=== PATIENT | female | born 1940 | race Caucasian/White ===

== ENCOUNTER 2016-05-24 09:06 | Inpatient (IN) | payer MEDICARE ==
[~2016-05-24] VITALS: Ht 162.6 cm; Wt 79.7 kg
[2016-05-24] VITALS (11 sets, daily range): BP systolic 130–183; BP diastolic 56–85; PULSE 77–92; RESP 14–21; O2SAT 91–96
--- NOTE | 2016-05-24 07:11 | PCM.HPANE ---
Patient Data Surgeon Admitting Provider: Attending Provider:Julio Linton MD Primary Care Physician:Rossi Gates MD Other Provider:Renetta Lopezingham Anesthesia Reason for Visit Right Knee Arthritis Ht/WT & BMI Height (Feet): 5 Height (Inches): 4 Weight (Kilograms): 79.74 Body Mass Index 30.00 Allergies Coded Allergies: codeine (Verified Allergy, Unknown, itch, 05/20/16) Uncoded Allergies: THIMEROSOL (Allergy, Unknown, 05/20/16) Past Anesthesia History Anesthesia History: Positive for:: Anesthesia Reactions (difficulty waking up after rotator cuff/record requested could not be found), Denies:: Abnormal Airway, Difficult Intubation, Fam Anesthesia Reaction Diabetes History Hx Diabetes?: No MRSA MRSA: No Medications Hypertension Medication: Yes Home Meds Incl Beta Jered: No Reported Medications Cholecalciferol (Vitamin D3) (Vitamin D3)5,000 Unit Capsule5,000 Unit PO DAILY 05/20/16 Estradiol (Vagifem)10 Mcg Wqmudm03 Mcg VG 2xweekly 05/20/16 Acetaminophen (Tylenol Arthritis)650 Mg Tablet.er650 Mg PO PRN For Pain 05/20/16 Nicotine Polacrilex (Nicorette)2 Mg Lozenge2 Mg BC PRN PRN For Tobacco Withdrawal Ref 0 05/20/16 Multivitamin (Multi Vitamin Daily)1 Each Tablet1 Each PO DAILY 30 Days Ref 0 05/20/16 Meloxicam 7.5 Mg/5 Ml Oral.susp7.5 Mg PO DAILY 30 Days Ref 0 05/20/16 Hydrochlorothiazide 25 Mg Djufcb15 Mg PO DAILY 30 Days Ref 0 05/20/16 Glucosamine 500 Mg Oibgdh835 Mg PO DAILY 05/20/16 [place]-3/Dha/Epa/Fish Oil (Fish Oil 1,000 mg Softgel)1 Each Capsule1 Each PO DAILY 05/20/16 Clonidine 0.3 Mg Tablet0.3 Mg PO BID Ref 0 05/20/16 Methylcellulose (Citrucel)500 Mg Nshvrr541 Mg PO DAILY 05/20/16 Citalopram 40 Mg Nytsev19 Mg PO DAILY 30 Days Ref 0 05/20/16 Calcium Carbonate (Calcium)600 Mg Ujauow428 Mg PO DAILY 05/20/16 History HEENT History: Positive for:: Cataracts (bilateral) Hearing Problem Sinus Problem (recently over cold, some residual - no fever) Denies:: Abnormal Airway Difficult Intubation Dysphagia Glaucoma TMJ Hx of Heart Problems?: Yes Cardiovascular History: Positive for:: Heart Murmur (benign heart murmur since ) Hypertension Denies:: AICD Abdominal Aortic Aneurism Atrial Fibrillation Chest Pain Coronary Artery Disease Pacemaker Peripheral Vascular Rheumatic Fever Hx of Respiratory Problem?: Yes Respiratory History: Positive for:: Cough (recent cough/cold) Pneumonia (couple times ) Denies:: Asthma COPD Emphysema Oxygen Administration Tuberculosis Use of C-PAP Machine Use of Inhalers / NEBS Hx Neurologic Problems?: No Neurological History: Positive for:: Dizziness (solitary episode once when dehydrated ) Denies:: Alzheimer's Disease CVA Headaches Multiple Sclerosis Parkinson's Disease Seizures TIA Hx of GI Problems?: No Gastrointestinal History: Denies:: Cirrhosis Gall Bladder Disease Gastroesphageal Reflux Gastrointestinal Bleeding Heartburn Hepatitis Hiatal Hernia Liver Disease Rectal Bleeding Hx of Problems?: Yes Genitourinary History: Denies:: Kidney Stones Urinary Tract Infection Female Hx: Denies:: Currently (tubal ligation) Problems with Breasts? Skin History: Denies:: History Skin Disorders? Pressure Ulcers Hx Musculoskeletal Problems?: Yes Musculoskeletal History: Positive for:: Back Injury (spinal stenosis, scoliosis) Musculoskeletal Trauma (right knee current admission problem) Osteoarthritis Denies:: Fibromyalgia Joint Replacement Myasthenia Gravis Systemic Lupus Hx of Psycho/Social Problems?: Yes Psycho Social History: Positive for:: Hx Depression Denies:: Anxiety Hx Surgeries?: Yes (rotator cuff, cataracts, MOHs dissection facial, tonsillectomy,tubal) Hx Any Other Health Problems?: Yes Other History: Positive for:: Cancer (BCC- facial) Denies:: Thyroid Disease History Blood Transfusions: Positive for:: Accept Blood Products? Denies:: Blood Transfusions Hx Diabetes: No Hx Alcohol Use: NoHx Substance Use: No Smoking Status: Former Smoker Have You Smoked inLast 12 mo: No Stop/Bang S-Snoring: Do You Snore Loudly: No T-Tired: feel tired, fatigued: No O-Obsered: Observed not breath: No P-Blood Pressure: treated: Yes B- Body Mass Index > 35 kg/m2: No A- Age over 50: Yes N- Neck Large Circumference: Yes G- Gender Male: No JORGITO Total Score: 3 JORGITO Risk Assessment: Low Risk, <3 Yes Risk Assessment Category Category 1A: Patient has history of documented sleep apnea, and HAS NOT received any narcotic, sedative or anesthesia administration during this stay. Category 1B: Patient has history of documented sleep apnea, and HAS received any narcotic , sedative or anesthesia administration during this stay Category 2: Patient has SUSPECTED Obstructive Sleep Apnea, and HAS received any narcotic , sedative or anesthesia administration during this stay. Category 3: Patient has SUSPECTED Obstructive Sleep Apnea and HAS NOT received narcotic, sedative or anesthesia administration during this stay. Category 4: Outpatient in Procedural Areas with known sleep apnea or who screen positive for High Risk via the STOP/BANG questionnaire. Exam Exam General Appearance: Alert, Oriented X3, Cooperative, No Acute Distress HEENT/AIRWAY: MP 2 Lungs: Normal Air Movement Heart: Exam Unremarkable Plan Impression Patient chart reviewed, patient interviewed and anesthestic plan with risks, benefits, and alternatives discussed, and informed consent obtained. ASA Physical Status: ASA2 Mod Systemic Disease Anesthetic Plan: Regional Block, SAB Bene/Risks/Altern/Consents: Yes HP Complete Prior to Induction: Yes Yves Cordoba MD May 24, 2016 07:11
[~2016-05-24 09:06] MED LIST: ACET-2766 PO; Bupivacaine Liposome 1.3% 20 mL Inj INFILTRATE SCH; CALC600T12 PO; CHOL5000 PO; CITA40TA13 PO; CLON0.3T PO; CeFAZolin Inj 2 GM in IV Premix 1 EACH IV ONE; ESTR10TA VG; GLUC500T12 PO; HYDR25TA4 PO; Lactated Ringer's 1,000 ML IV ONE; MELO7.5O PO; METH500T5 PO; MULT-1018 PO; NICO2LOZ47 BC; OMEG-38 PO; Tranexamic Acid 100 mg/mL 10 mL Inj IV SCH; Vancomycin Inj 1,000 MG in IV Premix 1 EACH IV ONE
[2016-05-24] MEDS ORDERED: Lactated Ringer's 1,000 ML IV ONE (09:46)
[2016-05-24] MEDS ORDERED: 0.9% Sodium Chloride 100 ML ONE (10:31)
[2016-05-24] MEDS ORDERED: Bupivacaine Liposome 1.3% 20 mL Inj ONE (10:31)
[2016-05-24] MEDS ORDERED: Tranexamic Acid 100 mg/mL 10 mL Inj TOPICAL ONE (11:40)
[2016-05-24] MEDS ORDERED: Lactated Ringer's 500 ML IV PRN (11:48)
[2016-05-24] MEDS ORDERED: Lactated Ringer's 1,000 ML IV SCH (11:48)
[2016-05-24] MEDS ORDERED: MetoCLOpramide 5 mg/mL 2 mL Inj IVPUSH PRN (11:50)
[2016-05-24] MEDS ORDERED: EPHEDrine Sulfate 50 mg/mL Inj IVPUSH PRN (11:50)
[2016-05-24] MEDS ORDERED: Dexamethasone 4 mg/mL Inj IVPUSH PRN (11:50)
[2016-05-24] MEDS ORDERED: HYDROmorphone 1 mg/mL Inj IVPUSH PRN (11:50)
[2016-05-24] MEDS ORDERED: Ondansetron 2 mg/mL 2 mL Inj IVPUSH PRN (11:50)
[2016-05-24] MEDS ORDERED: Phenylephrine 10,000 mCg/mL Inj IVPUSH PRN (11:50)
[2016-05-24] MEDS ORDERED: fentaNYL-PF 50 mCg/mL 2 mL Inj IVPUSH PRN (11:50)
[2016-05-24] MEDS ORDERED: Albuterol-Ipratropium 3 mL Inhalation Solution NEB PRN (11:50)
[2016-05-24] MEDS ORDERED: Gentamicin 40 mg/mL 2 mL Inj IRRIGATION ONE (12:06)
[2016-05-24] MEDS ORDERED: Bupivacaine Liposome 1.3% 20 mL Inj INFILTRATE ONE (12:07)
[2016-05-24] MEDS ORDERED: Bupivacaine-MPF 0.25%/EPI 30 mL Inj INFILTRATE ONE (12:07)
--- NOTE | 2016-05-24 13:39 | DRSVH ---
PROCEDURE: X-RAY RIGHT KNEE, ONE OR TWO VIEWS ([id number]) INDICATIONS: POST PROTHESIS ALINMENT TECHNIQUE: 2 view(s) of the knee acquired. COMPARISON: Outside Film, CR, XR KNEE ARTHRITIC SERIES , 09/01/2015, 14:20. FINDINGS: Bones: Patient is status post knee joint arthroplasty. Hardware components are in expected position s. Visualized bony structures are intact. Soft tissues: Overlying postoperative changes are noted. Surgical drainage catheter is noted. IMPRESSION: Expected postoperative changes related to total right knee arthroplasty. Dictated by: Nikolay Eastman M.D. on 05/24/2016 at 12:37 Approved by: Nikolay Eastman M.D. on 05/24/2016 at 12:38
[2016-05-24 13:41] LABS: APPEARANCE,URINE HAZY (CLEAR,HAZY); COLOR,URINE STRAW (YELLOW); OCCULT BLOOD,URINE NEGATIVE (NEGATIVE); UROBILINOGEN,URINE NORMAL (NORMAL)
--- NOTE | 2016-05-24 13:41 | PCM.ANEP1 ---
Post Anesthesia Phase 1 PACU Phase 1 Assessment Vital Signs Vital Signs Date Time Temp Pulse Resp B/P Pulse Ox O2 Delivery O2 Flow Rate FiO2 05/24/16 13:35 36.6 80 15 142/62 93 Room Air 05/24/16 13:30 82 17 143/62 93 Room Air 05/24/16 13:25 77 15 130/67 92 Room Air 05/24/16 13:20 21 94 05/24/16 13:20 80 19 149/65 93 Room Air 05/24/16 13:15 36.2 89 18 137/58 94 Room Air 05/24/16 09:25 36.4 80 14 183/85 95 Room Air Anesthetic Administered: Regional Block, SAB Level of Alertness: Awake, talking FUNEZ's with Equal Strength: No (spinal) Pain: No Nausea or Vomiting: No Oxygen Delivery: Room Air Lungs: Normal Air Movement Dermatome Level: L1,2 (Groin) Yves Cordoba MD May 24, 2016 13:41
--- NOTE | 2016-05-24 13:42 | PCM.ANEP2 ---
Post Anesthesia Evaluation ASA/CMS Post Anesthesia VS in Patient's Normal Range?: Yes Resp Stable; Airway Patent?: Yes CV Function & Hydration Stable: Yes Mental Status Recovered?: Yes Pain control Satisfactory?: Yes N/V Control Satisfactory?: Yes Yves Cordoba MD May 24, 2016 13:42
[2016-05-24] MEDS ORDERED: fentaNYL-PF 50 mCg/mL 2 mL Inj ONE (14:04)
[2016-05-24] MEDS ORDERED: Propofol 10,000 mCg/mL 20 mL Inj ONE (14:04)
[2016-05-24] MEDS ORDERED: Bupivacaine 0.5% 50 mL Inj ONE (14:04)
[2016-05-24] MEDS ORDERED: Ondansetron 2 mg/mL 2 mL Inj ONE (14:04)
[2016-05-24] MEDS ORDERED: Dexamethasone 4 mg/mL Inj ONE (14:04)
[2016-05-24] MEDS ORDERED: MetoCLOpramide 5 mg/mL 2 mL Inj IV PRN (14:55)
[2016-05-24] MEDS ORDERED: Sodium Biphos-Phos 133 mL Enema RECTAL PRN (14:55)
[2016-05-24] MEDS ORDERED: Magnesium Hydroxide 10 mL Oral Concentration PO PRN (14:55)
[2016-05-24] MEDS ORDERED: Ondansetron 8 mg ODT Tablet PO PRN (14:55)
[2016-05-24] MEDS ORDERED: Senna-Docusate 8.6-50 mg Tablet PO PRN (14:55)
[2016-05-24] MEDS ORDERED: diphenhydrAMINE 25 mg Capsule PO PRN (14:55)
[2016-05-24] MEDS ORDERED: CeFAZolin 2 Gm/50 mL D5W Premix IV SCH (14:55)
[2016-05-24] MEDS ORDERED: Ondansetron 2 mg/mL 2 mL Inj IV PRN (14:55)
--- NOTE | 2016-05-24 14:56 | NUR ---
Admit to [facility] Pt arrived on [facility] at 1405 hrs from PACU. Alert and oriented X 3. Oxygen at 2 LPM via nasal cannula. PIV patent and asymptomatic. VSS. All personal possessions with pt. Family at the bedside.
[2016-05-24] MEDS: Lactated Ringer's 1,000 ML IV SCH (15:20)
[2016-05-24] MEDS ORDERED: NICOTINE GUM PO PRN (15:35)
[2016-05-24] MEDS ORDERED: LORazepam 0.5 mg Tablet PO PRN (19:15)
[2016-05-24] MEDS: Ketorolac 15 mg/mL Inj IV SCH (20:08)
[2016-05-24] MEDS: HYDROcodone-APAP 5-325 mg Tablet PO PRN (20:08)
[2016-05-24] MEDS: CeFAZolin 2 Gm/50 mL D5W Premix IV SCH (20:48)
[2016-05-24] MEDS: cloNIDine 0.1 mg Tablet PO SCH (22:25)
[2016-05-25 00:37] VITALS: BP 110/61; PULSE 74; RESP 16; O2SAT 93
--- NOTE | 2016-05-25 00:58 | OP ---
[address] [address] OPERATIVE REPORT PATIENT: CHRISTINA DALAL : 1940 MR#: [id number] ADMIT: 05/24/2016 JOB ID: [id number] DATE OF SURGERY: 05/24/2016 PREOPERATIVE DIAGNOSIS(ES): Severe arthritis, right knee. POSTOPERATIVE DIAGNOSIS(ES): Severe arthritis, right knee. PROCEDURE: Total knee replacement. SURGEON: Julio Linton MD. MARKETING/SALES PERSON: Daxa Franco PA-C. Cpr Ambulance Driver required due to the complexity of the operation. COMPLICATIONS: None. INDICATIONS: Severe progressive osteoarthritis. The patient understands the potential for risks and complications, which include, but is not limited to infection, thromboembolic, neurovascular events, as well as potential for implant failure. PROCEDURE: The patient was prepped and draped in usual sterile fashion. An anteromedial approach made to the knee. The patella was subluxed laterally, cut transversely, sized to a 32, patellar protection plate was utilized. Drill hole placed in the distal femur and a 5 degree valgus distal femoral cut was made. The femur was sized to a #6 femoral component, fixed in appropriate position, rotation, chamfer cuts and drill holes were made. The tibia sized to a D provisionally after an extramedullary guide was utilized to make a standard tibial cut. All meniscal tissue and osteophytes were removed from the knee. Trial reduction was performed and a 12 mm polyethylene produced excellent flexion and extension, balance and range of motion. Pressurized lavage was followed by pressurized cementation of the components. Excess cement was removed during the curing process. Final construct was assembled. The tourniquet was let down. Hemostasis was achieved. Deep Hemovac drain was left. The knee was closed after lavage with dilute Betadine solution with #2 Quill followed by a 2-0 Vicryl, 3-0, and a 4-0 intracuticular stitch. Steri-Strips applied. Patient returned to the recovery room stable condition. Standard postoperative plan recommended.
[2016-05-25] MEDS: Ketorolac 15 mg/mL Inj IV SCH ×2 (02:30→08:33)
--- NOTE | 2016-05-25 04:32 | NUR ---
Toradol/pain pt was given her first of 3 scheduled toradol last night. shortly after administering the med the pt became flushed and hot and then a short time after that pt started to become itchy. she had no hives or visible rashes. she denied any airway swelling. she was given benadryl 25mg PO which stopped the itching. nurse withheld second dose of toradol. pt has received 1 [place] for pain this shift. she has pain in her back that is chronic. she denies any pain in her leg at this time. she is eager to work with physical therapy this AM. hourly rounding continues.
[2016-05-25] MEDS: CeFAZolin 2 Gm/50 mL D5W Premix IV SCH (04:45)
[2016-05-25 05:07] VITALS: BP 110/67; PULSE 62; RESP 16; O2SAT 92
[2016-05-25 06:20] LABS: BASOPHILS % (AUTO) 0.1 % (0-3); EOSINOPHILS % (AUTO) 0.4 % (0-5); MONOCYTES % (AUTO) 8.4 % (4-12); Mean Corpuscular Hemoglobin 31.6 pg (27.0-35.0); Mean Corpuscular Volume 96.8 fL (81-100); NEUTROPHILS % (AUTO) 71.6 % (40-74); Platelet Count 179 bil/L (150-400)
[2016-05-25] MEDS: Lactated Ringer's 1,000 ML IV SCH (07:35)
--- NOTE | 2016-05-25 07:59 | PCM.PNORTH ---
Subjective Date of Service: May 25, 2016 Visit Information: Reason for Visit Right Knee Arthritis Surgery/Surgery Date R TKA 05/24/16 Post-Op Day # 1 Date of Admission: May 24, 2016 at 14:03 Hospital Day # Subjective Patient states she has been bored so she has been doing leg lifts. She states she had increasing pain yesterday "when my block wore off" but has had well controlled pain since. She has no concerns at this time. Postop General: No Complaints, No Shortness of Breath, No Chest Pain Pain Management: PO Objective Exam Objective Patient sitting up in bed performing straight leg lifts Vital Signs and I/O Vital Sign - Last Date Time Temp Pulse Resp B/P Pulse Ox O2 Delivery O2 Flow Rate FiO2 05/25/16 05:07 36.7 62 16 110/67 92 Room Air 05/24/16 21:08 2.00 Intake and Output 05/24/16 05/24/16 05/25/16 Cumulative From/Thru 14:59 22:59 06:59 05/20/16 11:49 - 05/25/16 06:22 Intake Total 1150 ml 813 ml 1487 ml 3450 ml Output Total 130 ml 652 ml 705 ml 1487 ml Balance 1020 ml 161 ml 782 ml 1963 ml Intake Oral 813 ml 520 ml 1333 ml IV Total 1150 ml 967 ml 2117 ml Output Urine Total 80 ml 652 ml 650 ml 1382 ml Drainage Total 55 ml 55 ml Estimated Blood Loss 50 ml 50 ml Lab & Micro Results Laboratory Tests Test 05/24/16 11:45 05/25/16 05:42 Urine Color Straw (YELLOW) Urine Appearance Hazy (CLEAR,HAZY) Urine pH 7.0 (5.0-8.0) Urine Specific [place] 1.015 (1.003-1.035) Urine Protein Negativemg/dL (NEG,TRACE) Urine Glucose (UA) Negativemg/dL (NEGATIVE) Urine Ketones Negativemg/dL (NEGATIVE) Urine Occult Blood Negative (NEGATIVE) Urine Nitrite Negative (NEGATIVE) Urine Bilirubin Negative (NEGATIVE) Urine Urobilinogen Normalmg/dL (NORMAL) Urine Leukocyte Esterase Negative (NEGATIVE) Urine RBC 0-2/hpf (0-2) Urine WBC 0-5/hpf (0-5) Urine Epithelial Cells Occasional/hpf (NONE-MOD) Urine Crystals None seen (NONE SEEN) Urine Bacteria Few/hpf (NONE-FEW) Urine Hyaline Casts None/lpf (NONE) Urine Granular Casts None seen (NONE SEEN) Urine Waxy Casts None seen (NONE SEEN) Urine Red Blood Cell Casts None seen (NONE SEEN) Urine White Blood Cell Casts None seen (NONE SEEN) Urine Mucus None seen (None Seen) Urine Trichomonas None seen (NONE SEEN) Urine Yeast None (NONE SEEN) Urinalysis Comment None Urine Culture Reflexed Not indicated White Blood Count 9.9th/mm3 (3.8-10.1) Red Blood Count 3.16mil/mm3 (3.90-5.20) Hemoglobin 10.0g/dL (12.0-15.6) Hematocrit 30.6% (35.0-46.0) Mean Corpuscular Volume 96.8fL (81-100) Mean Corpuscular Hemoglobin 31.6pg (27.0-35.0) Mean Corpuscular Hemoglobin Concent 32.7% (32.0-37.0) Red Cell Distribution Width 12.6% (12.3-15.4) Platelet Count 179bil/L (150-400) Neutrophils (%) (Auto) 71.6% (40-74) Lymphocytes (%) (Auto) 19.4% (14-46) Monocytes (%) (Auto) 8.4% (4-12) Eosinophils (%) (Auto) 0.4% (0-5) Basophils (%) (Auto) 0.1% (0-3) Result Diagram: 05/25/16 0542 General Appearance: Alert, Oriented X3, Cooperative, No Acute Distress Extremities: Distal Pulses Palpable, Warm, No Compartment Syndrom Noted, Thigh & Calf Soft/Nontender Postop Sensory Motor: Distal Motor Intact (able to do straight leg lift), Movement in Toes, Distal Sensation Intact, NVI Distally SURGICAL WOUND : Wound Location/Description Perioperative dressing clean, dry and intact Drain Location Body Site: Knee Incision General Appearance: No Direct Observation Wound Drainage Type: Hemovac (D/C today) Catheters: Urethral [address] (D/C today) Assessment & Plan Impression POD#1 right TKA Problems: Plan Weightbearing: Weightbearing as tolerated from a walker DVT prophylaxis: Aspirin 81 mg twice a day 6 weeks Physical therapy for transfers, progressive ambulation, strengthening Wound care: Perioperative dressing will be changed to an island dressing tomorrow by PA Analgesia: Continue oral pain management Discharge plan: Discharge home tomorrow most likely. Start outpatient physical therapy next week. Follow-up plan: In 2 weeks at [facility] with PA for wound check and at [address] Linton with x-rays Daxa Franco PA-C May 25, 2016 07:59
[2016-05-25] MEDS ORDERED: Vancomycin Inj 1,250 MG in 0.9% Sodium Chloride 250 ML IV ONE (08:30)
[2016-05-25] MEDS: cloNIDine 0.1 mg Tablet PO SCH ×2 (08:34→22:00)
[2016-05-25 08:56] VITALS: BP 112/63; PULSE 82; RESP 20; O2SAT 95
--- NOTE | 2016-05-25 14:05 | NUR ---
Activity / Lane / Hemovac Pt up with PT today. Tolerating activity well with minimal pain. Lane catheter was removed at 1115 hrs. Pt has not voided yet. Hemovac drain removed from right knee. Dressing applied at site. No bleeding noted. Pt will have MAGNUS wrap dressing removed 05/26/[address] orders. Care continues.
[2016-05-25 14:33] VITALS: BP 101/58; PULSE 63; RESP 18; O2SAT 96
--- NOTE | 2016-05-25 16:05 | NUR ---
Social Work Note - Initial Assessment: D/A: See Initial Assessment, the Pt is a 75 y/o female that was admitted for right knee arthritis. Readmission Score Risk 2. The Pt's PCP is MD Rossi Gates and her insurance is [employer], no LTC or VA benefits. EMR reviewed. JOSE met with the Pt to explain role and discuss discharge planning. JOSE telephone number written on [employer]. The Pt lives independently in a one level home in [place] with her . Advanced Directive in chart. The Pt continues to drive, does not use any daily DME, and denies a HH/SNF history. The Pt denies any needs at this time, SW to follow if needs arise. P: The Pt to discharge home when medically stable family providing POV transportation. The Pt denies any needs at this time, SW to follow if needs arise. SHEILA Lopez Magnet Placer Addendum: 05/25/16 at 1608 by JEANNINE HERNÁNDEZ Amended: Links added. Addendum: 05/25/16 at 1618 by MAY CHAVEZ SS JOSE reviewed editing internship note. May Chavez,LEAF BLENDER
[2016-05-25] MEDS: Alum-Mag Hydrox-Simeth 30 mL Suspension PO PRN (18:25)
[2016-05-25 21:05] VITALS: BP 110/58; PULSE 69; RESP 20; O2SAT 92
[2016-05-25] MEDS: hydrOXYzine Pamoate 25 mg Capsule PO PRN (22:07)
[2016-05-26] MEDS: Lactated Ringer's 1,000 ML IV SCH ×2 (00:15→16:09)
[2016-05-26 05:42] VITALS: BP 100/63; PULSE 69; RESP 20; O2SAT 93
--- NOTE | 2016-05-26 06:03 | NUR ---
Activity Pt ambulates to BR with walker and SBA, she does report increase in pain since yesterday. Given PO oxy and vistaril and no further requests for pain meds this shift. No complications from Lane or hemovac DC yesterday. No SOB or chest pain. Care continues
[2016-05-26 07:56] VITALS: BP 104/57; PULSE 75; RESP 22; O2SAT 93
[2016-05-26] MEDS: hydrOXYzine Pamoate 25 mg Capsule PO PRN (08:06)
--- NOTE | 2016-05-26 09:11 | PCM.PNORTH ---
Subjective Date of Service: May 26, 2016 Visit Information: Reason for Visit Right Knee Arthritis Surgery/Surgery Date R TKA 05/24/16 Post-Op Day # 2 Date of Admission: May 24, 2016 at 14:03 Hospital Day # Subjective Patient did quite well with physical therapy yesterday and ambulated 150 feet. However today she is quite painful. She just had some pain medication and is quite sleepy. She wakes up to answer questions but then falls asleep, snoring. Physical therapy will see her later today. Patient's daughter is at bedside. She states that outpatient physical therapy is scheduled to start on Tuesday. The patient has thigh-high compression stockings here. Postop General: No Complaints, No Shortness of Breath, No Chest Pain Pain Management: PO Objective Exam Objective Patient is seen lying in bed. She wakes up to respond to questions but then falls back asleep. Vital Signs and I/O Vital Sign - Last Date Time Temp Pulse Resp B/P Pulse Ox O2 Delivery O2 Flow Rate FiO2 05/26/16 07:56 36.7 75 22 104/57 93 Room Air 05/24/16 21:08 2.00 Intake and Output 05/25/16 05/25/16 05/26/16 Cumulative From/Thru 15:00 23:00 07:00 05/20/16 11:49 - 05/25/16 19:07 Intake Total 322 ml 700 ml 4472 ml Output Total 425 ml 1912 ml Balance 322 ml 275 ml 2560 ml Intake Oral 700 ml 2033 ml IV Total 322 ml 2439 ml Output Urine Total 325 ml 1707 ml Drainage Total 100 ml 155 ml Estimated Blood Loss 50 ml Result Diagram: 05/25/16 0542 General Appearance: Alert, Oriented X3, Cooperative Extremities: Distal Pulses Palpable, No Compartment Syndrom Noted, Thigh & Calf Soft/Nontender Postop Sensory Motor: Distal Motor Intact, NVI Distally SURGICAL WOUND : Wound Location/Description Right knee: Surgical dressing is removed. There is a pressure bandage on the lateral side of the knee at the site of the drain portal. Surgical wound is clean dry and intact. Steri-Strips are intact. There is no erythema present. The wound is cleansed with hydrogen peroxide and an Island dressing is applied. Activity: Activity per PT Catheters: None Assessment & Plan Impression Status post right total knee arthroplasty Problems: Plan Weightbearing: Weightbearing as tolerated with walker DVT prophylaxis: aspirin 81mg twice a day 6 weeks Physical therapy for transfers, progressive ambulation, therapeutic exercise Wound care: Dressing is changed by PA today. Nursing, please apply patient's thigh high compression stocking Discharge plan: Discharge home today after physical therapy if the patient is awake and alert enough for discharge. Start outpatient physical therapy next week Discharge instructions are reviewed with the patient and her daughter Follow-up plan: In 2 weeks at [facility] with PA for wound check and at [address] Linton with x-rays Patient did well with PT this afternoon, and was discharged home. Pain Management: Percocet, Oxycodone VTE Prophylaxis: SCDs, Other (aspirin) Resuscitation Status: CPR: Attempt Resuscitation [place] PA-C May 26, 2016 09:11
--- NOTE | 2016-05-26 09:19 | NUR ---
ABBI signed at 915AM
--- NOTE | 2016-05-26 09:49 | PCM.DIORTH ---
Ortho Discharge Instruction Date of Service: May 26, 2016 Dates of Hospitalization Date of Hospital Admission May 24, 2016 at 14:03 Providers Admitting Physician: Julio Linton MD Primary Care Physician: Rossi Gates MD Attending Physician: Julio Linton MD Diet Discharge Diet: No restrictions Activity Discharge Activity-General: Balance rest and activity, Elevate & ice extremity Right Lower Extremity: Weight Bearing as tolerated Range of motion restrictions: No restriction to range of motion. Push yourself to bend the knee more every day Discharge Assist Device: Front Wheeled Walker Dressing and Incisional Care Discharge Dressing Care: Keep dressing clean, dry & intact Discharge Hygiene: May shower (with wound wrapped in plastic for 1 week after surgery. After that the wound may be uncovered for showering), DO NOT soak incision under water, NO bathtub, hot tub or whirlpool Additional Instructions Discharge Instructions Ice the knee 6-8 times a day for 20-30 minutes at a time Every hour of the day that you are awake, get up and walk or do some of the exercises. Gradually increase each day Push yourself with bending and straightening the knee. It will hurt but you need to push yourself. Every afternoon lay down with the leg up on pillows above the level of the heart to help decrease swelling. Continue wearing thigh-high compression stockings for 3-4 weeks Follow Up Plan Follow Up Plan At [facility] in 2 weeks with PA for wound check, and at [address] Linton with x-ray Toshia Rutherford-C May 26, 2016 09:49
[2016-05-26] MEDS ORDERED: HYDR-3797 PO (09:54)
[2016-05-26] MEDS ORDERED: ASPI-973 PO (09:54)
[2016-05-26] MEDS ORDERED: OXYC1TAB24 PO (09:54)
[2016-05-26] MEDS ORDERED: DOCU-41 PO (09:54)
[2016-05-26] MEDS: cloNIDine 0.1 mg Tablet PO SCH ×2 (10:39→21:02)
[2016-05-26 10:42] VITALS: BP 122/65; PULSE 74; RESP 16; O2SAT 92
--- NOTE | 2016-05-26 11:20 | NUR ---
Social Work- readiness for discharge: Data:EMR Reviewed. Pt is on day 2 of hospitalization for right knee arthritis per H&P. Pt is not medically stable for discharge at this time. PT has seen pt and recommended home with outpt PT. SW confirmed plan home with . Pt's to provide transport home. No other discharge needs identified. SW will continue to follow if needs arise. Assessment:Pt who is independent at baseline. Plan:Pt to discharge home today via POV. No other discharge needs identified. SW will continue to follow if needs arise. SHEILA Madrigal
--- NOTE | 2016-05-26 15:57 | NUR ---
Social Work- discharge: Data:EMR Reviewed. Pt is on day 2 of hospitalization for right knee arthritis per H&P. Pt is medically stable for discharge. PT has seen pt and recommended home with outpt PT. SW confirmed plan home with . Pt's to provide transport home. No other discharge needs identified. All updated and agreeable to plan. Assessment:Pt who is independent at baseline. Plan:Pt to discharge home today via POV. No other discharge needs identified. All updated and agreeable to plan. SHEILA Madrigal
--- NOTE | 2016-05-26 17:35 | NUR ---
Activity Pt continues to rate pain between 4-8/10. Roxicodone and Vistaril given this morning after the pt went 10 hours without pain medication. Pt became very tired and sedated. Oxygen saturation was 88% on RA. SUSPECT ARTIST SUPERVISOR placed and pt was put on 2 L O2. PA notified. Encouraged the pt to cough and deep breath and PA ordered IS. Pt is able to ambulate to the bathroom SBA with the FWW and pt was up to the bedside chair for lunch. Spoke with the PA this afternoon about pain medications and she switched the pain medication. Pt is currently less somnolent and sating 95% on RA. Will continue to monitor.
[2016-05-26] MEDS: Alum-Mag Hydrox-Simeth 30 mL Suspension PO PRN (18:11)
--- NOTE | 2016-05-26 19:38 | NUR ---
I took over care of patient at 5:00 pm Addendum: 05/26/16 at 1938 by ANCELMO CAMPOS CNA Amended: Links added.
[2016-05-26 20:51] VITALS: BP 129/69; PULSE 70; RESP 20; O2SAT 95
[2016-05-26] MEDS: HYDROcodone-APAP 5-325 mg Tablet PO PRN (21:03)
[2016-05-27] MEDS: hydrOXYzine Pamoate 25 mg Capsule PO PRN (00:49)
[2016-05-27] MEDS: HYDROcodone-APAP 5-325 mg Tablet PO PRN (03:49)
[2016-05-27 04:58] VITALS: BP 104/63; PULSE 65; RESP 18; O2SAT 93
--- NOTE | 2016-05-27 06:19 | NUR ---
Pain/Activity/Resp Pt with intermittent R knee pain at 3-05/24. Medicated with Ultram x1 and Vicodin x2, effective. Pt up to B R with FWW and SBA, toelrates well. Pt on RA and cont pulse oxy over night, sats mostly in low 90's with non-sustained dips into high 80's.
--- NOTE | 2016-05-27 08:29 | PCM.PNORTH ---
Subjective Date of Service: May 27, 2016 Visit Information: Reason for Visit Right Knee Arthritis Surgery/Surgery Date R TKA 05/24/16 Post-Op Day # 3 Date of Admission: May 24, 2016 at 14:03 Hospital Day # Subjective Patient is feeling much better today she is more awake and alert. Oxygen has been discontinued. Patient has been using incentive spirometer and feels that her coughing is more effective now. She had a little heartburn last night but that has resolved. Oxycodone was discontinued yesterday. She is doing better with tramadol and [place] 5 mg. Postop General: No Complaints, No Shortness of Breath, No Chest Pain, Good Appetite Pain Management: PO Objective Exam Objective Patient is seen sitting up in bed with 2 daughters at bedside Vital Signs and I/O Vital Sign - Last Date Time Temp Pulse Resp B/P Pulse Ox O2 Delivery O2 Flow Rate FiO2 05/27/16 04:58 36.8 65 18 104/63 93 Room Air 05/26/16 10:42 2.00 Intake and Output 05/26/16 05/26/16 05/27/16 Cumulative From/Thru 15:00 23:00 07:00 05/20/16 11:49 - 05/27/16 05:53 Intake Total 118 ml 500 ml 800 ml 5890 ml Output Total 300 ml 825 ml 650 ml 3687 ml Balance -182 ml -325 ml 150 ml 2203 ml Intake Oral 118 ml 500 ml 800 ml 3451 ml IV Total 0 ml 2439 ml Output Urine Total 300 ml 825 ml 650 ml 3482 ml Drainage Total 155 ml Estimated Blood Loss 50 ml # Voids 1 1 # Bowel Movements 0 0 0 Result Diagram: 05/25/16 0542 General Appearance: Alert, Oriented X3, Cooperative, No Acute Distress Extremities: Distal Pulses Palpable, No Compartment Syndrom Noted, Thigh & Calf Soft/Nontender Postop Sensory Motor: Distal Motor Intact, NVI Distally Activity: Activity per PT Catheters: None Assessment & Plan Impression Status post right TKA Problems: Plan Weightbearing: Weightbearing as tolerated with walker DVT prophylaxis: aspirin 81mg twice a day 6 weeks Physical therapy for transfers, progressive ambulation, therapeutic exercise Wound care: change every 2-3 days as needed. Patient is much more alert with tramadol and [place] for pain management Discharge plan: Discharge home today after physical therapy Start outpatient physical therapy next week Discharge instructions are reviewed with the patient and her daughters Follow-up plan: In 2 weeks at [facility] with TAY for wound check and at [address] Linton with x-rays Pain Management: Tramadol, [place] 5 mg, Tylenol, Vistaril VTE Prophylaxis: SCDs, Other (aspirin) Resuscitation Status: CPR: Attempt Resuscitation Toshia Rutherford PA-C May 27, 2016 08:29
[2016-05-27] MEDS ORDERED: HYDR-4003 PO (09:08)
[2016-05-27] MEDS ORDERED: TRAM50TA2 PO (09:08)
--- NOTE | 2016-05-27 09:13 | PCM.DC.ORT ---
Discharge Summary Date of Service: May 27, 2016 Date of Hospital Admission: May 24, 2016 at 14:03 Date of Surgery: May 24, 2016 Date of Discharge: May 27, 2016 Reason for Hospitalization: Right knee arthritis Procedures Performed: Right total knee arthroplasty Hospital Course: The patient was admitted to the hospital on 05/24/2016 and underwent the above procedure. Antibiotic prophylaxis consisting of Ancef and vancomycin. The surgeon was Dr. Linton. A Lane was placed perioperatively. Patient tolerated the procedure well and was transferred to recovery room in stable condition. Lane was discontinued on postop day 1. Patient had physical therapy to work on ambulation and transfers. Weightbearing as tolerated with walker. Pain was managed with Dilaudid, Percocet, Vistaril, Toradol. Patient became quite somnolent with Percocet. She had low oxygen saturations and was placed on oxygen. Percocet was discontinued. Pain is managed with tramadol and [place] 5 mg. Patient was much more awake and alert after the change in pain medication. DVT prophylaxis: Aspirin 81 mg twice a day, SCDs, thigh-high compression stocking. Patient progressed well with physical therapy and on POD- 3 was discharged home. Follow-up: at [facility] 2 weeks postop for wound check and at [address] Linton with x-ray Diagnosis at Time of Discharge Status post right total knee arthroplasty Problems: Disposition: Discharged home in stable condition with her family to assist in her care Additional Information At [facility] in 2 weeks with PA for wound check, and at [address] Linton with x-ray AP and lateral right knee Discharge Instructions: Weightbearing: Weightbearing as tolerated with walker DVT prophylaxis: aspirin 81mg twice a day 6 weeks Wound care: change every 2-3 days as needed. Ice and elevate the leg multiple times a day Start outpatient physical therapy next week Acetaminophen (Tylenol Arthritis) 650 Mg Tablet.er 650 MG PO PRN For Pain Aspirin (Aspirin) 81 Mg Tablet 81 MG PO BID Calcium Carbonate (Calcium) 600 Mg Tablet 600 MG PO DAILY Cholecalciferol (Vitamin D3) (Vitamin D3) 5,000 Unit Capsule 5,000 UNIT PO DAILY Citalopram (Citalopram) 40 Mg Tablet 40 MG PO DAILY Clonidine (Clonidine) 0.3 Mg Tablet 0.3 MG PO BID Docusate Sodium (Colace) 100 Mg Capsule 100 MG PO BID PRN PRN For Constipation Estradiol (Vagifem) 10 Mcg Tablet 10 MCG VG 2xweekly Glucosamine (Glucosamine) 500 Mg Tablet 500 MG PO DAILY Hydrochlorothiazide (Hydrochlorothiazide) 25 Mg Tablet 25 MG PO DAILY Hydrocodone-Acetaminophen 5-325 mg (Hydrocodone-Acetaminophen 5-325 mg) 1 Each Tablet 1 TABLET PO Q4H PRN PRN For Pain Hydroxyzine Pamoate (HydrOXYzine Pamoate) 25 Mg Capsule 25 MG PO Q6H PRN PRN For Restlessness Methylcellulose (Citrucel) 500 Mg Tablet 500 MG PO DAILY Multivitamin (Multi Vitamin Daily) 1 Each Tablet 1 EACH PO DAILY Nicotine Polacrilex (Nicorette) 2 Mg Lozenge 2 MG BC PRN PRN PRN For Tobacco Withdrawal [place]-3/Dha/Epa/Fish Oil (Fish Oil 1,000 mg Softgel) 1 Each Capsule 1 EACH PO DAILY Tramadol (Tramadol) 50 Mg Tablet 50 MG PO Q6H PRN PRN For Pain Toshia Rutherford PA-C May 27, 2016 09:13
[2016-05-27 09:30] VITALS: BP 129/73; PULSE 80; RESP 16; O2SAT 95
[2016-05-27] MEDS: cloNIDine 0.1 mg Tablet PO SCH (09:30)
--- NOTE | 2016-05-27 12:34 | NUR ---
Discharge Discharged to home via private vehicle accompanied by two daughters and spouse. Transported via w/c. Pt. is doing well, with pain at 310. Dressing clean dry and intact, with compression stocking on. All belongings, instructions and scripts with pt. No questions or concerns at this time.
[2016-07-31] MEDS ORDERED: HYDR-4003 PO (10:32)
== END 2016-05-27 11:48 | disposition home or self-care (01) | DRG 470 ==
LOC: SAS 09:06 → OSC 14:03
PROVIDERS: ADMIT Orthopaedic Surgery; ATTEND Orthopaedic Surgery
PROC: 0SRC0J9 Replacement of Right Knee Joint with Synthetic Substitute, Cemented, Open Approach (ICD-10-PCS; principal; 2016-05-24 10:30)
DX: M17.11 Unilateral primary osteoarthritis, right knee (principal); I10 Essential (primary) hypertension